=== PATIENT | male | born 1955 | race Caucasian/White ===

== ENCOUNTER → 2016-10-04 | Outpatient (CLI) | payer OTHER ==
[~2016-10-04] MED LIST: CLARITIN D TAB1 TAB PO; FLONASE0.05 MG/AC NS; FORTAMET500 MG PO; LANTUS SOLOS100 U/ML SC; LISINOPRIL PO; MVI; NORCO 325 MG-51 TAB PO; NOVOLOG FLEX100 U/ML SC; PROTONIX PO; PROZAC 20MG20 MG PO; SIMVASTATIN10 MG PO; VITAMIN B12; ZOFRAN 4MG T4 MG/TAB PO; [UNRECOGNIZED DRUG - OTHER]; htn med
== END ==
LOC: COL.RAD 13:56
DX: R42 Dizziness and giddiness (principal); G44.219 Episodic tension-type headache, not intractable
CPT/HCPCS: A9585

== ENCOUNTER → 2016-12-05 | Outpatient (CLI) | payer OTHER | LOC: ZLAB.ENT 17:40 | DX: Z01.89 Encounter for other specified special examinations (principal) ==

== ENCOUNTER → 2016-12-30 | Outpatient (CLI) | payer OTHER | LOC: COL.LAB 17:05 | DX: J32.3 Chronic sphenoidal sinusitis (principal) ==

== ENCOUNTER 2017-11-21 11:51 | Day surgery (SDC) | payer OTHER ==
[~2017-11-21] VITALS: Ht 180.3 cm; Wt 96.6 kg
[2017-11-21 12:26] VITALS: BP 145/85; PULSE 75; TEMP 97.5
[2017-11-21] MEDS ORDERED: VITAMIN C500 MG PO (12:30)
[2017-11-21] MEDS ORDERED: ZYRTEC 10MG10 MG PO (12:30)
[2017-11-21] MEDS ORDERED: B-121000 MCG PO (12:32)
[2017-11-21] MEDS ORDERED: FISH OIL 1000MG1 CAP PO (12:32)
[2017-11-21] MEDS ORDERED: ADVIL200 MG PO (12:33)
[2017-11-21] MEDS ORDERED: GLUCOPHAGE1000 MG PO (12:35)
[2017-11-21] MEDS ORDERED: NEURONTIN300 MG/CAP PO (12:36)
[2017-11-21] MEDS ORDERED: PATADAY 2.5 ML2.5 ML OU (12:38)
[2017-11-21] MEDS ORDERED: ZOCOR 20MG20 MG PO (12:39)
[2017-11-21] MEDS ORDERED: TOUJEO300 U/ML SQ (12:42)
[2017-11-21] MEDS ORDERED: BYDUREON P2 MG/0.65 (12:43)
[2017-11-21] MEDS ORDERED: VITAMIN D 1001000 IU PO (12:44)
[2017-11-21 14:40] VITALS: BP 116/79; PULSE 81; TEMP 97.9
[2017-11-21 14:55] VITALS: BP 114/79; PULSE 90
[2017-11-21 15:10] VITALS: BP 125/79; PULSE 72
== END 2017-11-21 15:25 | disposition home or self-care (01) ==
LOC: SDCO 11:51
DX: Z12.11 Encounter for screening for malignant neoplasm of colon (principal); K64.0 First degree hemorrhoids; K21.9 Gastro-esophageal reflux disease without esophagitis; E11.9 Type 2 diabetes mellitus without complications; I10 Essential (primary) hypertension; E78.00 Pure hypercholesterolemia, unspecified; G47.33 Obstructive sleep apnea (adult) (pediatric); N40.0 Benign prostatic hyperplasia without lower urinary tract symptoms; Z88.5 Allergy status to narcotic agent; Z88.8 Allergy status to other drugs, medicaments and biological substances
CPT/HCPCS: OP; J2250; J2405; J3010; J7042

== ENCOUNTER 2018-03-29 23:20 | Emergency (ER) | payer OTHER ==
[~2018-03-29] VITALS: Ht 180.3 cm; Wt 97.7 kg
[~2018-03-29 23:20] MED LIST changes: +ADVIL200 MG PO; +B-121000 MCG PO; +BYDUREON P2 MG/0.65; +FISH OIL 1000MG1 CAP PO; +GLUCOPHAGE1000 MG PO; +NEURONTIN300 MG/CAP PO; +PATADAY 2.5 ML2.5 ML OU; +TOUJEO300 U/ML SQ; +VITAMIN C500 MG PO; +VITAMIN D 1001000 IU PO; +ZOCOR 20MG20 MG PO; +ZYRTEC 10MG10 MG PO
[2018-03-29 23:24] VITALS: TEMP 96.6
[2018-03-30 00:04] LABS: COLLECTION METHOD CLEAN CATCH
[2018-03-30 00:16] LABS: BASO # 0.1 (0.0-0.2); BASO % 0.5 % (0.0-2.0); EOS # 0.3 (0.0-0.7); EOS % 2.7 % (0-4.0); GRAN # 7.5 (1.4-6.5); GRAN % 68.7 % (42.2-75.2); HEMATOCRIT 41.5 % (42.0-52.0); HEMOGLOBIN 14.7 g/dl (13.5-18.0); LYMPH # 1.7 (1.2-3.4); LYMPH % 15.5 % (20.0-51.0); MEAN CELL VOLUME 84 fl (80.0-100.0); MEAN CORPUSCULAR HEMOGLOBIN 30 pg (27.0-31.0); MEAN CORPUSCULAR HGB CONC 35 g/dl (33.0-37.0); MEAN PLATELET VOLUME 8.5 fl (7.4-10.4); MONO # 1.3 (0.1-0.6); MONO % 12.1 % (1.7-9.3); PLATELET COUNT 327 K/mm3 (130-400); RED BLOOD COUNT 4.96 M/mm3 (4.20-5.60)
[2018-03-30 00:19] LABS: MUCOUS Present /lpf; PH 5 (5-8); SQUAMOUS EPITHELIAL None Seen /hpf; URINE APPEARANCE Hazy; URINE BACTERIA None Seen /hpf; URINE BILIRUBIN Negative (NEGATIVE); URINE BLOOD Negative (NEGATIVE); URINE CALCIUM OXALATE CRYSTAL Present /hpf; URINE COLOR Yellow; URINE GLUCOSE Negative (NEGATIVE); URINE KETONE Trace (NEGATIVE); URINE LEUKOCYTE ESTERASE Negative (NEGATIVE); URINE NITRATE Negative (NEGATIVE); URINE PROTEIN(semi-quant) 2+ (NEGATIVE); URINE RBC 0-2 /hpf; URINE UROBILINOGEN Negative (NEGATIVE)
[2018-03-30 00:20] VITALS: BP 129/83
[2018-03-30 00:27] LABS: ALANINE AMINOTRANSFERASE 37 U/L (21-72); ALBUMIN 4.1 gm/dL (3.5-5.0); ALKALINE PHOSPHATASE 47 U/L (50-136); ANION GAP 15 mmol/L (7-16); AST,SGOT 34 U/L (15-37); BILIRUBIN,TOTAL 0.3 mg/dL (0.0-1.0); BLOOD UREA NITROGEN 17 mg/dL (9-20); CALCIUM 8.8 mg/dL (8.4-10.2); CARBON DIOXIDE 20 mmol/L (22-30); CHLORIDE 103 mmol/L (98-107); CREATININE, serum 0.82 mg/dL (0.66-1.25); GLUCOSE 103 mg/dL (74-106); POTASSIUM 3.2 mmol/L (3.4-5.0); SODIUM 139 mmol/L (137-145); TOTAL PROTEIN 7.2 gm/dL (6.4-8.2)
[2018-03-30 00:38] LABS: TROPONIN-I < 0.012 ng/mL (0.000-0.034)
[2018-03-30 01:59] VITALS: PULSE 79
[2018-03-30] MEDS ORDERED: K-DUR20 MEQ PO (02:06)
== END 2018-03-30 02:00 | disposition home or self-care (01) ==
LOC: COL.ER 23:20
PROVIDERS: Emergency Medicine
DX: E11.40 Type 2 diabetes mellitus with diabetic neuropathy, unspecified (principal); R53.81 Other malaise; R53.83 Other fatigue; I10 Essential (primary) hypertension; E78.5 Hyperlipidemia, unspecified; Z79.51 Long term (current) use of inhaled steroids; Z79.4 Long term (current) use of insulin; Z98.890 Other specified postprocedural states
CPT/HCPCS: J7030

== ENCOUNTER 2020-05-30 11:40 | Emergency (ER) | payer MEDICARE, OTHER ==
[~2020-05-30] VITALS: Ht 180.3 cm; Wt 100.0 kg
[~2020-05-30 11:40] MED LIST changes: -FLONASE0.05 MG/AC NS; +FLONASEALLERGY NS; +K-DUR20 MEQ PO; -LISINOPRIL PO; +PROTONIX 40MG T40 MG PO; -PROTONIX PO; -VITAMIN D 1001000 IU PO; +VITAMIN D31000 IU PO; +ZESTRIL 20MG TA20 MG PO
[2020-05-30 11:49] VITALS: TEMP 98.2
[2020-05-30] MEDS ORDERED: TRULICITY1.5 MG/0.5 SQ (12:30)
[2020-05-30 12:32] LABS: COLLECTION METHOD CLEAN CATCH
[2020-05-30 12:40] LABS: BASO % 0.4 % (0.0-2.0); EOS # 0.1 (0.0-0.7); EOS % 1.3 % (0-4.0); GRAN # 7.4 (1.4-6.5); GRAN % 70.5 % (42.2-75.2); HEMATOCRIT 44.5 % (42.0-52.0); HEMOGLOBIN 15.2 g/dl (13.5-18.0); LYMPH # 1.6 (1.2-3.4); LYMPH % 15.6 % (20.0-51.0); MEAN CELL VOLUME 86 fl (80.0-100.0); MEAN CORPUSCULAR HEMOGLOBIN 29 pg (27.0-31.0); MEAN CORPUSCULAR HGB CONC 34 g/dl (33.0-37.0); MEAN PLATELET VOLUME 8.9 fl (7.4-10.4); MONO # 1.2 (0.1-0.6); MONO % 11.6 % (1.7-9.3); PLATELET COUNT 330 K/mm3 (130-400); RED BLOOD COUNT 5.18 M/mm3 (4.20-5.60); REDCELL DISTRIBUTION WIDTH-CV 13.1 % (11.5-14.5)
[2020-05-30 12:42] LABS: PH 6 (5-8); SQUAMOUS EPITHELIAL None Seen /hpf; URINE APPEARANCE Hazy; URINE BACTERIA None Seen /hpf; URINE BILIRUBIN Negative (NEGATIVE); URINE BLOOD Negative (NEGATIVE); URINE COLOR Yellow; URINE GLUCOSE 2+ (NEGATIVE); URINE KETONE Negative (NEGATIVE); URINE LEUKOCYTE ESTERASE Negative (NEGATIVE); URINE NITRATE Negative (NEGATIVE); URINE PROTEIN(semi-quant) Negative (NEGATIVE); URINE RBC None Seen /hpf; URINE UROBILINOGEN Negative (NEGATIVE)
[2020-05-30 12:50] LABS: ALANINE AMINOTRANSFERASE 37 U/L (4-49); ALBUMIN 4.3 gm/dL (3.5-5.0); ALKALINE PHOSPHATASE 54 U/L (50-136); ANION GAP 11 mmol/L (7-16); AST,SGOT 36 U/L (15-37); BILIRUBIN,TOTAL 0.6 mg/dL (0.0-1.0); BLOOD UREA NITROGEN 14 mg/dL (9-20); C-REACTIVE PROTEIN 0.9 mg/dL (0.0-0.9); CALCIUM 9.1 mg/dL (8.4-10.2); CARBON DIOXIDE 25 mmol/L (22-30); CHLORIDE 100 mmol/L (98-107); GLUCOSE 243 mg/dL (74-106); LIPASE 628 U/L (23-300); POTASSIUM 4.2 mmol/L (3.4-5.0); SODIUM 136 mmol/L (137-145); TOTAL PROTEIN 7.6 gm/dL (6.4-8.2)
[2020-05-30 13:04] LABS: TROPONIN-I < 0.012 ng/mL (0.000-0.035)
[2020-05-30] MEDS ORDERED: PERCOCET 325 MG1 TA2 PO (15:22)
[2020-05-30] MEDS ORDERED: ZOFRAN ODT4 MG PO (15:22)
[2020-05-30] MEDS ORDERED: PROTONIX 40MG T40 MG PO (15:22)
[2020-05-30 15:31] VITALS: BP 142/83; PULSE 88
== END 2020-05-30 15:34 | disposition home or self-care (01) ==
LOC: COL.ER 11:40
PROVIDERS: Emergency Medicine
DX: K85.90 Acute pancreatitis without necrosis or infection, unspecified (principal); K21.9 Gastro-esophageal reflux disease without esophagitis; E11.9 Type 2 diabetes mellitus without complications; E78.5 Hyperlipidemia, unspecified; Z88.6 Allergy status to analgesic agent; Z88.8 Allergy status to other drugs, medicaments and biological substances; Z79.4 Long term (current) use of insulin
CPT/HCPCS: J1170; Q9967

== ENCOUNTER 2020-06-22 10:18 | Day surgery (SDC) | payer MEDICARE, OTHER ==
[~2020-06-22] VITALS: Ht 180.3 cm; Wt 103.0 kg
[~2020-06-22 10:18] MED LIST changes: +PERCOCET 325 MG1 TA2 PO; +TRULICITY1.5 MG/0.5 SQ; +ZOFRAN ODT4 MG PO
[2020-06-22 10:55] VITALS: BP 151/88; PULSE 62; TEMP 98.1
--- NOTE | 2020-06-22 12:34 | NUR ---
Patient reported to STORE KEEPER Leann Llanes that he was feeling like his blood sugar was low. BG is rechecked per order and is now 75. TORB received for 1/2 amp D50 IV and this is given over 5 minutes. Patient reports that he is feeling better and STORE KEEPER is aware that BG has not been re-checked prior to OR. Patient goes to the OR at this time with MATERIAL MOVER Belkis Causey.
[2020-06-22] MEDS ORDERED: PERCOCET 325 MG1 TA2 PO (13:42)
[2020-06-22 14:30] VITALS: BP 137/71; PULSE 96; TEMP 97.4
--- NOTE | 2020-06-22 14:30 | NUR ---
Patient arrives to [facility] [place] [facility] via cart, accompanied by CARD DECORATOR Emy. He is sitting up in bed, alert and oriented, sipping water. Monitoring is applied -VSS and WNL on room air. He has been clearing his throat frequently, infrequent unproductive cough. He denies pain except when coughing, and rates that as 5/10. His incisions x4 are clean/dry, glue intact. His is at the bedside. He denies any nausea. He is offered something to drink. He requests and receives Sprite. His abdomen is obese, rounded, but soft to touch and tender.
[2020-06-22 14:45] VITALS: BP 143/77; PULSE 92
--- NOTE | 2020-06-22 14:45 | NUR ---
Incisions remain clean/dry, glue intact. Patient's coughing and throat clearing has decreased in frequency. He is tolerating fluids well. He is given crackers and applesauce to eat. He will try a pain pill for his pain with coughing once he has eaten some food. VSS on room air.
[2020-06-22 15:00] VITALS: BP 144/87; PULSE 93
--- NOTE | 2020-06-22 15:00 | NUR ---
Patient is given Percocet for pain 5/10 with coughing. He has ate crackers and applesauce, drank sprite and water. Tolerating PO well.
--- NOTE | 2020-06-22 15:10 | NUR ---
Patient still has infrequent unproductive cough and throat clearing. Lung sounds are clear bilaterally to auscultation. Pain from coughing is treated wtih percocet.
[2020-06-22 15:15] VITALS: BP 144/71; PULSE 94
--- NOTE | 2020-06-22 15:15 | NUR ---
VSS on room air. Patient is resting comfortably in room.
--- NOTE | 2020-06-22 15:50 | NUR ---
1530 Patient ambulates to the restroom with standby assist and steady gait. He voids a large amount of clear/yellow urine and returns to room. 1550 Patient has met discharge criteria. Discharge instructions are discussed. He denies any questions and verbalizes understanding. Dr. Santillan is called regarding a work release - patient is given a release from work for 1 week. PIV is removed with catheter intact and hemostasis achieved. Patient changes to his clothing independently. 1557 Patient is escorted to the exit via wheelchair by staff. He is discharged to home with ride in private vehicle at 1557.
== END 2020-06-22 15:57 | disposition home or self-care (01) ==
LOC: SDCO 10:18
DX: K81.1 Chronic cholecystitis (principal); I10 Essential (primary) hypertension; E11.9 Type 2 diabetes mellitus without complications; Z20.828 Contact with and (suspected) exposure to other viral communicable diseases; E78.5 Hyperlipidemia, unspecified; G47.33 Obstructive sleep apnea (adult) (pediatric); E66.9 Obesity, unspecified; Z68.30 Body mass index [BMI] 30.0-30.9, adult; M16.11 Unilateral primary osteoarthritis, right hip; K21.9 Gastro-esophageal reflux disease without esophagitis; N40.0 Benign prostatic hyperplasia without lower urinary tract symptoms; Z88.5 Allergy status to narcotic agent; Z79.4 Long term (current) use of insulin; Z79.899 Other long term (current) drug therapy; Z88.8 Allergy status to other drugs, medicaments and biological substances
CPT/HCPCS: J0330; J0690; J1100; J1885; J2405; J2704; J3010; J7030

== ENCOUNTER → 2022-04-26 | Outpatient (CLI) | payer MEDICARE, OTHER ==
[~2022-04-26] MED LIST changes: +PROBIOTIC BLEN1 EACH PO
== END ==
LOC: COL.RAD 15:53
DX: R59.0 Localized enlarged lymph nodes (principal)

== ENCOUNTER → 2022-05-05 | Outpatient (CLI) | payer MEDICARE, OTHER ==
[~2022-05-05] VITALS: Ht 180.3 cm; Wt 102.7 kg
[2022-05-05 11:25] VITALS: BP 145/99; PULSE 69; TEMP 97.7
[2022-05-05 12:05] VITALS: BP 171/94; PULSE 79
== END ==
LOC: COL.RAD 10:48
DX: R59.0 Localized enlarged lymph nodes (principal)
CPT/HCPCS: 32108

== ENCOUNTER → 2023-02-02 | Outpatient (CLI) | payer MEDICARE, OTHER ==
[~2023-02-02] MED LIST changes: +Albuterol 0.083% Neb Soln 2.5 MG/3 ML UD IH ONE
== END ==
LOC: COL.PUL 01-31 13:00
DX: R06.02 Shortness of breath (principal)